=== PATIENT | female | born 1970 | race Caucasian/White ===

== ENCOUNTER 2018-09-09 11:12 | Inpatient (IN) ==
--- NOTE | 2018-09-09 11:33 | PROVIDER DOCUMENTATION ---
HPI-Respiratory General - General Chief Complaint: Cold Symptoms Stated Complaint: COLD SYMPTOMS Time Seen by Provider: 09/09/18 11:22 Source: patient Allergies/Adverse Reactions: Patient Allergies Allergy/AdvReac Type Severity Reaction Status Date / Time No Known Allergies Allergy Verified 09/09/18 11:30 Home Medications: Home Medication List Medication Instructions Recorded Confirmed Last Taken Type Duloxetine HCl [Cymbalta] 30 mg PO DAILY 11/04/15 12/30/15 12/29/15 21:00 History 30 MG Tizanidine HCl [Zanaflex] 2 mg PO DAILY 11/04/15 12/30/15 12/29/15 21:00 History 2 MG Topiramate [Topamax] 50 mg PO DAILY 11/04/15 12/30/15 12/29/15 21:00 History 50 MG Aripiprazole [Abilify] 5 mg PO HS 12/30/15 12/30/15 12/29/15 21:00 History 5 MG Clonazepam [Klonopin] 1 mg PO HS 12/30/15 12/30/15 12/29/15 21:00 History 1 MG Ferrous Gluconate [Ferronate] 325 mg PO BID #60 tablet 12/30/15 Unknown Rx Amlodipine [Norvasc] 10 mg PO DAILY #30 tablet 03/04/18 Unknown Rx Cephalexin [Keflex] 500 mg PO 4XDAY #30 cap 03/04/18 Unknown Rx Furosemide [Lasix] 20 mg PO DAILY #30 tab 03/04/18 Unknown Rx Meloxicam [Mobic] 7.5 mg PO DAILY PRN #15 tab 03/04/18 Unknown Rx Potassium Chloride E.r. [Klor-Con] 10 meq PO DAILY #30 tab 03/04/18 Unknown Rx - History of Present Illness-Resp Nature of Presenting Problem: Patient is a 47yo F who presents w/ c/o productive cough w/white sputum, nasal congestion, and body aches x3 weeks. Also reports occasional SOB. Patient reports she was diagnosed with the Flu 3 weeks ago, and treated, and reports feeling better for 3 days and then symptoms began. Reports she last saw her PCP 4 days ago who gave her a steroid shot and cough medication, which patient reports has not helped. Reports her PCP gave her a breathing treatment in office 4 days ago, which helped. Denies any fever/chills, n/v/d, or CP. Quality of Pain: reports: none Severity in ED: reports: moderate Onset/Duration: reports: other (3 weeks ago) Timing: reports: still present Context: reports: recent URI (Flu) Cough Quality/Degree: reports: mild, productive cough (w/ white sputum) Episode Frequency: occasional episodes Current Respiratory Medication Therapy: Initiated see nurses note, Initiated albuterol Modifying Factors: improves with: albuterol nebulizer, rest. worse with: exertion Associated Symptoms: reports: cough, muscle/bodyaches, nasal congestion, short of breath. denies: chest pain/soreness, dizziness, earache, fever/chills, headache, hurts to breathe, hyperventilating, sweaty Similar Symptoms Previously?: No Recently seen or treated by another doctor?: Yes (Saw PCP4 days ago) Review of Systems - Adult - REVIEW OF SYSTEMS - ADULT Constitutional: denies: chills, fever Eyes: reports: no symptoms reported Ears, Nose, Mouth & Throat: reports: sinus problem. denies: ear pain, throat pain Cardiovascular: denies: chest pain, palpitations Respiratory: reports: see HPI, cough (productive w/ white sputum), shortness of breath. denies: wheezing Gastrointestinal: denies: abdominal pain, nausea, vomiting Genitourinary: reports: no symptoms reported Musculoskeletal: reports: see HPI, muscle aches Integumentary: reports: no symptoms reported Neurological: reports: no symptoms reported Psychiatric: reports: no symptoms reported Endocrine: reports: no symptoms reported All Other Systems: Reviewed and Negative Past History - Adult - PAST MEDICAL HISTORY-ADULT Review of Records: reports: Nursing Assessment Review, Medications Reviewed, Social history reviewed & non-contributory. Major Childhood Illnesses: reports: denies history Cardiovascular: reports: HTN Respiratory: reports: denies history Gastrointestinal: reports: denies history Obstetrical/Gynecological: reports: denies history Genitourinary: reports: denies history Musculoskeletal: reports: denies history Neurological: reports: denies history Psychiatric: reports: depression Endocrine/Immune: reports: anemia Other Conditions: reports: denies history - PRIOR SURGERIES/PROCEDURES Surgical/Procedure History: reports: cholecystectomy, hysterectomy, BTL, C- section, orthopedic (extremity) (right ankle, right elbow), other (breast reduction; emdometrial ablation) - PRIOR HOSPITALIZATIONS Prior Hospitalizations: reports: none - IMMUNIZATION STATUS Childhood Immunizations: See Nurse Assessment Flu Vaccine: See Nurse Assessment - FAMILY HISTORY Family History: reviewed, not pertinent - SOCIAL HISTORY Smoking: non-smoker Physical Exam-General - PHYSICAL EXAM-ADULT Initial Vital Signs Reviewed: Yes - CONSTITUTIONAL General Appearance: alert, mild distress - EYES Eyes: PERRL/EOMI, pink conjunctivae - HEAD, EARS, NOSE, MOUTH & THROAT HENMT: normocephalic/atraumatic, moist mucous membranes, normal ENT inspection, TMs normal, pharynx normal - NECK Neck: full range of motion, supple, normal inspection - RESPIRATORY Respiratory: chest non-tender, no pleuratic chest pain, no respiratory distress, no accessory muscle use, wheezing (mild expiratory wheeze all lung garces). negative: crackles, rales, rhonchi, stridor, retractions, splinting, decreased rate, increased rate - CARDIOVASCULAR Cardiovascular: no gallop, no murmur, tachycardia (107) - GASTROINTESTINAL (ABDOMEN) Abdominal Exam: normal bowel sounds, non tender, soft - LYMPHATIC Lymphatic: no adenopathy - MUSCULOSKELETAL Back Exam: normal inspection Extremity: normal range of motion, non-tender - SKIN Integumentary: normal color, normal turgor, warm/dry - NEUROLOGIC Neurologic: grossly normal - PSYCHIATRIC Psych/Mental Status: normal mood/affect, normal thought content, normal thought process, oriented x 3 Progress - PLAN OF CARE/RESULTS Progress/Plan/Lab Results: Vital Signs - 8 hr 09/09/18 11:16 09/09/18 11:50 09/09/18 12:24 Temperature 99.2 F Pulse Rate 107 H 104 H Respiratory Rate 18 18 Blood Pressure 141/85 O2 Sat by Pulse Oximetry 100 98 99 09/09/18 12:26 09/09/18 12:30 09/09/18 12:40 Temperature Pulse Rate Respiratory Rate Blood Pressure 165/96 O2 Sat by Pulse Oximetry 98 100 96 09/09/18 12:50 09/09/18 13:10 09/09/18 13:20 Temperature Pulse Rate 99 H 102 H Respiratory Rate Blood Pressure O2 Sat by Pulse Oximetry 95 100 100 09/09/18 13:30 09/09/18 13:40 09/09/18 13:50 Temperature Pulse Rate 91 H 95 H 89 Respiratory Rate Blood Pressure O2 Sat by Pulse Oximetry 100 100 99 09/09/18 14:00 09/09/18 14:10 09/09/18 15:51 Temperature Pulse Rate 90 91 H 93 H Respiratory Rate 18 Blood Pressure 157/98 O2 Sat by Pulse Oximetry 100 99 95 Laboratory Results - last 24 hr 09/09/18 09/09/18 15:12 15:12 WBC 8.68 RBC 4.93 Hgb 13.5 Hct 39.7 MCV 80.5 L MCH 27.4 MCHC 34.0 RDW Std Deviation 13.6 Plt Count 193 MPV 10.0 Immature Gran % (Auto) 2.8 H Neut % (Auto) 68.1 Lymph % (Auto) 16.7 L [place] % (Auto) 12.0 H Eos % (Auto) 0.1 Baso % (Auto) 0.3 Immature Gran # (Auto) 0.24 H Neut # (Auto) 5.91 Lymph # (Auto) 1.45 [place] # (Auto) 1.04 H Eos # (Auto) 0.01 Baso # (Auto) 0.03 Sodium 134 L Potassium 3.3 L Chloride 97 L Carbon Dioxide 22 L Anion Gap 15 BUN 12 Creatinine 0.7 Estimated GFR/1.73 m2 > 60 BUN/Creatinine Ratio 17 Glucose 104 Calculated Osmolality 268 Calcium 8.4 L Total Bilirubin 0.50 AST 33 H ALT 29 Alkaline Phosphatase 104 Total Protein 6.7 Albumin 3.5 Globulin 3.2 Albumin/Globulin Ratio 1.1 Orders Category Date Time Status Saline Loc NOW Care 09/09/18 12:02 Active PICC Line Consult Routine Cons 09/09/18 14:06 Active CHEST-2 VIEWS [RAD] Stat Exams 09/09/18 11:20 Completed CBC WITH ELECTRONIC DIFF [HEME] Stat Lab 09/09/18 15:12 Completed COMPREHENSIVE METABOLIC PANEL [CHEM] Stat Lab 09/09/18 15:12 Completed PROTIME WITH INR [COAG] Stat Lab 09/09/18 15:54 Ordered 0.9% Sodium Chloride Inj [Ns] 250 ml Med 09/09/18 14:22 Discontinued .ROUTE As directed Albuterol 2.5MG/Ipratrop 0.5MG [Duoneb (A & A)] Med 09/09/18 11:37 Discontinued 3 ml INH NOW ONE Methylprednisolone Sod Succ [Solu-Medrol] Med 09/09/18 11:38 Discontinued 125 mg IM NOW ONE Potassium Chloride E.r. [Klor-Con] Med 09/09/18 15:58 Once 40 meq PO NOW ONE Vancomycin 1 gm/Ns Med 09/09/18 12:41 Discontinued 1 gm in 250 ml IV NOW Aerosol Treatments Routine Oth 09/09/18 11:38 Completed Aerosol Treatments Stat Oth 09/09/18 11:38 Completed Lab results, imaging results, and plan of care discussed with patient who verbalizes understanding. Plan of care discussed and formulated in conjunction with Dr. Ball. Result Diagrams: 09/09/18 15:12 09/09/18 15:12 - XRAY 1 XRAY: Bilateral XRAY Study: Chest Impression: See EMR Report ([facility] [address], [address], [place] [address] Department of Imaging Patient: JAREN PUENTE Date: 09/09/18MR#: [id number] : 1970ADM Status: PRE ERAcct#: [id number] Age/Sex: 47/FRoom/Bed: Loc: ED Ordering Physician: Ehsan Ball MD Family Physician: John Myles MD Reason for Procedure: cold Signed EXAM: CHEST-2 VIEWS 09/09/2018 HISTORY: cold TECHNIQUE: PA and lateral chest COMMENT: There is fluid in the posterior costophrenic sulcus on the right. Otherwise, there is no evidence of acute cardiac or pulmonary disease. Compared to 03/04/2018 the right pleural fluid collection was not previously present. IMPRESSION: Right pleural effusion. Electronically signed by Ismael Cross 09/09/2018 11:36 AM 09/09/18 1136 Interpreting Physician: Ismael Cross MD Dictated Date/Time: 09/09/18 2234 cc: Ehsan Ball MD; John Myles MD) - CONSULTS/PCP/HOSPITALIST Notification #1 *Consult/PCP/Hospitalist*: BEVERLY Santiago Time Discussed: 15:58 Reason/Comments: Pleural effusion post-influenza; IV antibiotics Consult Disposition: Admit Departure - Departure Date of Disposition Decision: 09/09/18 Time of Disposition Decision: 16:01 DIAGNOSIS: Pleural effusion, right, Post-influenza syndrome Disposition: ADMITTED INPATIENT 09 Certified Medical Emergency: Emergent Condition: Stable Referrals and Follow-Ups: John Myles MD [Primary Care Provider] - - Critical Care Note This patient required my direct & personal management of CC.: No Attestation - Physician/ ADALI Attestation Patient care was provided by Advanced Practice Provider:: Yes Advanced Practice Provider:: Venice Salgado Advanced Practice Provider documentation review:: The Mid-level provider documentation, treatment plan and medical decision making was reviewed by the physician who agrees with all treatment and medical decision making by the MLP. The physician spent face to face time with patient:: No Advanced Practice Provider documentation review:: Supervising physician onsite and consulted in the evaluation and care of this patient. The physician did not have a face to face encounter with the patient.
[2018-09-09] MEDS ORDERED: DUONEB (A & A) INH ONE (11:37)
[2018-09-09] MEDS ORDERED: SOLU-MEDROL IM ONE (11:38)
--- NOTE | 2018-09-09 11:38 | Diag Imaging Result Doc PS360 ---
EXAM: CHEST-2 VIEWS 09/09/2018 HISTORY: cold TECHNIQUE: PA and lateral chest COMMENT: There is fluid in the posterior costophrenic sulcus on the right. Otherwise, there is no evidence of acute cardiac or pulmonary disease. Compared to 03/04/2018 the right pleural fluid collection was not previously present. IMPRESSION: Right pleural effusion. Electronically signed by Ismael Cross 09/09/2018 11:36 AM
[2018-09-09] MEDS ORDERED: VANCOMYCIN 1 GM/NS 1 GM/250 ML IVPB IV ONE (12:41)
[2018-09-09] MEDS ORDERED: NS 250 ML ONE (14:22)
[2018-09-09 15:42] LABS: BASO# 0.03 X1000 (0.0-0.2); BASO% 0.3 % (0.0-0.8); EOS# 0.01 X1000 (0.0-0.7); EOS% 0.1 % (0.0-10.0); HEMATOCRIT 39.7 % (37.0-47.0); HEMOGLOBIN 13.5 g/dL (12.0-16.0); IMM GRAN# 0.24 X1000 (0.0-0.04); IMM GRAN% 2.8 % (0.0-0.5); LYMPH# 1.45 X1000 (1.2-3.4); LYMPH% 16.7 % (20.5-51.1); MCH 27.4 PG (27-31); MCV 80.5 FL (81-99); MONO# 1.04 X1000 (0.11-0.59); NEUT# 5.91 X1000 (1.4-6.5); NEUT% 68.1 % (42.2-75.2); PLT 193 X1000 (130-400); RBC 4.93 XMIL (4.2-5.4); RDW 13.6 % (11.5-14.5); WBC 8.68 X1000 (4.8-10.8)
[2018-09-09 15:57] LABS: AGAP 15; ALB/GLOB RATIO 1.1; ALBUMIN 3.5 g/dL (3.5-5.0); ALKALINE PHOSPHATASE 104 U/L (32-104); BUN 12 mg/dL (8-22); CALCIUM 8.4 mg/dL (8.8-10.2); CHLORIDE 97 mmol/L (98-107); COSMO 268; CREATININE 0.7 mg/dL (0.5-0.9); ESTIMATED GFR > 60; GLUCOSE 104 mg/dL (70-104); GOT 33 U/L (10-30); GPT 29 U/L (10-36); POTASSIUM 3.3 mmol/L (3.5-5.1); SODIUM 134 mmol/L (136-145); TCO2 22 mmol/L (25-35); TOTAL PROTEIN 6.7 g/dL (6.3-8.3)
[2018-09-09] MEDS ORDERED: KLOR-CON PO ONE ×2 (15:58→16:21)
[2018-09-09] MEDS ORDERED: ZOFRAN IV PRN (16:16)
[2018-09-09 16:17] LABS: INR 1.03; PROTIME 14.3 Seconds (11.0-16.0)
[2018-09-09] MEDS ORDERED: TYLENOL PO PRN (16:20)
--- NOTE | 2018-09-09 16:35 | EKG Report ---
Test Performed on : 09/09/2018 12:27:49 PM Test Reason : ED. No order in [place] Blood Pressure : / mmHG Vent. Rate : 098 BPM Atrial Rate : 098 BPM P-R Int : 124 ms QRS Dur : 088 ms QT Int : 350 ms P-R-T Axes : 041 000 049 degrees QTc Int : 446 ms Normal sinus rhythm. Nonspecific ST and T wave abnormality Abnormal ECG When compared with ECG of 04-MAR-2018 14:41, No significant change was found Unconfirmed Result
[2018-09-09] MEDS ORDERED: ZYVOX 600 MG/D5W 600 MG/300 ML IVPB IV SCH (17:00)
[2018-09-09] MEDS: MAXIPIME 1 GM in NS 50 ML IV SCH (17:33)
[2018-09-09] MEDS: TESSALON PO SCH (17:43)
--- NOTE | 2018-09-09 18:15 | Diag Imaging Result Doc PS360 ---
EXAM: CT THORAX W/O CONTRAST HISTORY: pneumonia/pleural effusion TECHNIQUE: CT chest without contrast COMPARISON: 03/04/2018 FINDINGS: No pleural effusions. No cardiomegaly. No thoracic aortic aneurysm. No enlarged lymph nodes. Atelectasis versus tiny infiltrates in the right lung base. No consolidation. No bronchiectasis. There is a left-sided PICC line. Tiny right lower lobe granuloma. Limited images through the upper abdomen reveal a cholecystectomy and prominent fatty infiltration of the liver. IMPRESSION: No consolidation or pleural effusion. Minimal atelectasis versus tiny infiltrate in the right lung base This exam was performed using automated exposure control, adjustment of mA or kV according to patient size, and/or use of iterative reconstruction technique. Electronically signed by Justin Manning 09/09/2018 6:13 PM
[2018-09-09] MEDS: DUONEB (A & A) INH SCH ×2 (20:05→23:32)
--- NOTE | 2018-09-09 20:16 | HISTORY AND PHYSICAL ---
PRIMARY CARE PHYSICIAN: HISTORY OF PRESENT ILLNESS: Ms. Blum is a 47-year-old female with a history of depression and obesity, who presented to the ER today with a chief complaint of 3 weeks of flulike symptoms. The patient reports that 3 weeks ago she was diagnosed with the flu, and ever since then she has been taking quqy-jze-snlmsir cough medication to try to relieve her symptoms. She reports that she has not been having fevers, but she has been complaining of headache, dizziness, increasing shortness of breath, persistent cough with clear sputum, and rhinorrhea. The patient states that she saw her primary care physician on several occasions and has received IM antibiotic therapy as well as oral steroid therapy. She reports a very poor appetite as well as body aches. She denies having any chest pains, seizures or recent syncopal episodes. In the ER, the patient was noted to have a temperature of 99.2 degrees with an O2 saturation of 100% on room air and heart rate of 107. A chest x-ray was done that revealed a right pleural effusion. PAST MEDICAL HISTORY: 1. Obesity. 2. Depression. PAST SURGICAL HISTORY: 1. . 2. Subtotal abdominal hysterectomy. 3. Bilateral salpingo-oophorectomy. 4. Lysis of adhesions. 5. Cholecystectomy. 6. Breast reduction. FAMILY HISTORY: The patient's mother had coronary artery disease at age 62. Positive for brain aneurysm. SOCIAL HISTORY: The patient denies any tobacco, alcohol or illicit drug use. ALLERGIES: No known drug allergies. HOME MEDICATIONS: The patient's medication list is not available at this time. REVIEW OF SYSTEMS: A 12-point review of systems has been performed. Please refer to the history of present illness for pertinent positives and negatives. PHYSICAL EXAMINATION: VITAL SIGNS: Temperature 98.3 degrees, blood pressure 140/87, heart rate 87, respirations 18, O2 saturation 99% on room air. GENERAL: This is a morbidly obese female, lying on the stretcher in no acute distress. SKIN: No rashes, no lesions. Normal capillary refill. HEENT: Head normocephalic, atraumatic. NECK: Supple. No JVD. No lymphadenopathy. HEART: S1, S2 normal. Regular rate and rhythm. LUNGS: Mild diffuse expiratory wheezes. Diminished breath sounds in the right lung base. ABDOMEN: Positive bowel sounds. Soft, nontender, nondistended. EXTREMITIES: No edema or cyanosis. NEUROLOGIC: The patient is alert and oriented x4. No focal neurologic deficits noted. Cranial nerves 2 through 12 intact. LABORATORY DATA: White blood cell count 8.6, hemoglobin 13, hematocrit 39, platelets 193,000. INR 1. Sodium 134, potassium 3.3, chloride 97, CO2 is 22, BUN 12, creatinine 0.7, glucose 104, calcium 8.4, AST 33, ALT 29, alkaline phosphatase 104, albumin 3.5. DIAGNOSTIC DATA: Chest CT revealed minimal atelectasis versus a tiny infiltrate in the right lung base. ASSESSMENT AND PLAN: 1. Possible pneumonia versus atelectasis. Blood and sputum cultures have been ordered. The patient will be started on broad-spectrum antibiotic therapy, bronchodilator therapy and supplemental oxygen. 2. Hypokalemia. We will replace the patient's potassium. 3. Morbid obesity. Aware. 4. Situational depression. Continue on BuSpar and Cymbalta. 5. Gastrointestinal prophylaxis. Continue on omeprazole. 6. Deep vein thrombosis prophylaxis. We will start the patient on Lovenox. cc: Lakshmi Ramsey MD [facility]
[2018-09-09] MEDS: NS 1,000 ML IV SCH (21:08)
[2018-09-09] MEDS: ZITHROMAX 500 MG/NS 500 MG/250 ML IVPB IV SCH (21:09)
[2018-09-09] MEDS: CYMBALTA PO SCH (22:25)
[2018-09-09] MEDS: BUSPAR PO SCH (22:25)
[2018-09-09] MEDS: SEROQUEL PO SCH (22:25)
[2018-09-09] MEDS: TUSSIONEX LIQUID PO SCH (22:25)
[2018-09-10] MEDS: DUONEB (A & A) INH SCH ×6 (03:34→23:57)
[2018-09-10] MEDS: MAXIPIME 1 GM in NS 50 ML IV SCH ×2 (06:31→17:34)
[2018-09-10] MEDS: PRILOSEC PO SCH (06:31)
[2018-09-10 07:13] LABS: HEMATOCRIT 40.2 % (37.0-47.0); HEMOGLOBIN 13.4 g/dL (12.0-16.0); MCH 27.6 PG (27-31); MCHC 33.3 g/dL (33-37); MCV 82.9 FL (81-99); MPV 9.9 FL (7.4-10.4); RBC 4.85 XMIL (4.2-5.4); WBC 7.51 X1000 (4.8-10.8)
[2018-09-10 07:45] LABS: AGAP 12; ALB/GLOB RATIO 1.1; ALBUMIN 3.5 g/dL (3.5-5.0); ALKALINE PHOSPHATASE 102 U/L (32-104); BUN 11 mg/dL (8-22); CALCIUM 7.9 mg/dL (8.8-10.2); CHLORIDE 104 mmol/L (98-107); COSMO 280; CREATININE 0.6 mg/dL (0.5-0.9); ESTIMATED GFR > 60; GLUCOSE 190 mg/dL (70-104); GOT 22 U/L (10-30); GPT 32 U/L (10-36); MAGNESIUM 2.2 mg/dL (1.5-2.7); POTASSIUM 3.9 mmol/L (3.5-5.1); SODIUM 138 mmol/L (136-145); TCO2 22 mmol/L (25-35); TOTAL BILIRUBIN 0.29 mg/dL (0.20-1.00); TOTAL PROTEIN 6.7 g/dL (6.3-8.3)
[2018-09-10] MEDS ORDERED: CYMBALTA PO SCH (09:00)
[2018-09-10] MEDS ORDERED: NASONEX NASAL SPRAY NAS SCH (09:00)
[2018-09-10] MEDS ORDERED: SOLU-MEDROL IV SCH ×2 (09:00→21:00)
[2018-09-10] MEDS: TUSSIONEX LIQUID PO SCH ×2 (10:05→20:17)
[2018-09-10] MEDS: BUSPAR PO SCH ×2 (10:05→20:17)
[2018-09-10] MEDS: LOVENOX SUBQ SCH (10:05)
[2018-09-10] MEDS: TESSALON PO SCH ×3 (10:05→17:34)
--- NOTE | 2018-09-10 11:25 | PROGRESS NOTE ---
DATE: 09/10/2018 SUBJECTIVE: The patient states that she feels a lot better today. She states that her wheezing has improved, and she is not coughing as much. OBJECTIVE: Vital Signs: Temperature 97.5 degrees, blood pressure 144/87, heart rate 83, respirations 18, O2 saturation 96% on room air. General: This is an overweight female, lying in bed in no acute distress. Heart: S1, S2 normal. Regular rate and rhythm. Lungs: Equal air entry bilaterally. No crackles. No wheezing. No rales. Abdomen: Positive bowel sounds. Soft, nontender, nondistended. Extremities: No edema, no cyanosis. Neurologic: The patient is alert and oriented x4. LABS: Reviewed. ASSESSMENT AND PLAN: 1. Pneumonia. Continue with antibiotic therapy. 2. Situational depression. Continue on BuSpar and Cymbalta. 3. Morbid obesity. Aware. 4. Gastrointestinal prophylaxis. Continue on omeprazole. 5. Deep vein thrombosis prophylaxis. Continue on Lovenox. cc: Lakshmi Ramsey MD
[2018-09-10] MEDS: NS 1,000 ML IV SCH (13:53)
--- NOTE | 2018-09-10 14:44 | ECHO REPORT ---
ORDER DATE: 09/09/2018 INTERPRETING PHYSICIAN: Dr. Uriah Rivera. ECHOCARDIOGRAPHIC MEASUREMENTS: 1. Interventricular septum 0.9. 2. Left ventricular posterior wall 0.8. 3. Diastolic diameter 5.3. 4. Left atrium 3.5. 5. Aorta 3.5. SUMMARY OF THE 2-DIMENSIONAL IMAGIN. Aortic valve appears to be trileaflet. 2. Pulmonic valve not well visualized. 3. Mitral valve was normal. 4. Tricuspid valve was normal. Peak velocity across the tricuspid valve was 2 m/sec. 5. Peak velocity across the aortic valve was less than 2 m/sec. There is no aortic stenosis or regurgitation. 6. There is mild mitral regurgitation. 7. Mild tricuspid regurgitation. 8. Normal left ventricular cavity size. 9. Estimated ejection fraction of 60% to 65%. 10. There is no pericardial effusion or obvious intracardiac mass or thrombus seen. cc: MD Lakshmi Hernández MD
[2018-09-10] MEDS: CYMBALTA PO SCH (20:17)
[2018-09-10] MEDS: SEROQUEL PO SCH (20:18)
[2018-09-10] MEDS: ZITHROMAX 500 MG/NS 500 MG/250 ML IVPB IV SCH (20:19)
[2018-09-11] MEDS: DUONEB (A & A) INH SCH ×6 (03:48→23:36)
[2018-09-11] MEDS: NS 1,000 ML IV SCH (04:12)
[2018-09-11] MEDS: MAXIPIME 1 GM in NS 50 ML IV SCH ×2 (04:12→17:33)
[2018-09-11] MEDS: PRILOSEC PO SCH (06:43)
[2018-09-11 07:17] LABS: HEMATOCRIT 37.7 % (37.0-47.0); HEMOGLOBIN 12.5 g/dL (12.0-16.0); MCH 27.8 PG (27-31); MCHC 33.2 g/dL (33-37); MCV 83.8 FL (81-99); RBC 4.5 XMIL (4.2-5.4); RDW 14.1 % (11.5-14.5); WBC 12.34 X1000 (4.8-10.8)
[2018-09-11 07:51] LABS: AGAP 9; BUN 10 mg/dL (8-22); CALCIUM 8.4 mg/dL (8.8-10.2); CHLORIDE 110 mmol/L (98-107); COSMO 287; CREATININE 0.5 mg/dL (0.5-0.9); ESTIMATED GFR > 60; GLUCOSE 147 mg/dL (70-104); POTASSIUM 4.2 mmol/L (3.5-5.1); SODIUM 143 mmol/L (136-145); TCO2 24 mmol/L (25-35)
[2018-09-11] MEDS: BUSPAR PO SCH ×2 (08:41→22:49)
[2018-09-11] MEDS: TUSSIONEX LIQUID PO SCH ×2 (08:41→22:50)
[2018-09-11] MEDS: LOVENOX SUBQ SCH (08:42)
[2018-09-11] MEDS: FLONASE NAS SCH (08:42)
[2018-09-11] MEDS: TESSALON PO SCH ×3 (08:42→17:33)
[2018-09-11] MEDS: CULTURELLE PO SCH ×2 (12:27→22:49)
[2018-09-11 13:10] LABS: HEMOGLOBIN A1C 5.9 % (4.8-6.0)
--- NOTE | 2018-09-11 13:10 | PROGRESS NOTE ---
DATE: 09/11/2018 SUBJECTIVE: The patient is resting comfortably in bed. She states that she feels a lot better today. She is coughing a lot less. OBJECTIVE: Vital Signs: Temperature 97.8 degrees, blood pressure 143/78, heart rate 87, respirations 18, O2 saturation 98% on room air. General: This is a middle-aged female, sitting in bed in no acute distress. Heart: S1, S2 normal. Regular rate and rhythm. Lungs: Clear to auscultation bilaterally. Abdomen: Positive bowel sounds. Soft, nontender, nondistended. Extremities: No edema. No cyanosis. Neurologic: The patient is alert and oriented x3. LABORATORY DATA: Reviewed. ASSESSMENT AND PLAN: 1. Pneumonia, improved. Continue with antibiotic and bronchodilator therapy. Will order a chest x-ray to be done tomorrow. 2. Morbid obesity. Aware. 3. Situational depression. Continue on buspirone, Cymbalta. 4. Gastrointestinal prophylaxis. Continue on omeprazole. 5. Deep vein thrombosis prophylaxis. Continue on Lovenox. cc: Lakshmi Ramsey MD
[2018-09-11] MEDS: SEROQUEL PO SCH (22:49)
[2018-09-11] MEDS: CYMBALTA PO SCH (22:49)
[2018-09-11] MEDS: ZITHROMAX 500 MG/NS 500 MG/250 ML IVPB IV SCH (22:49)
[2018-09-12] MEDS: DUONEB (A & A) INH SCH ×3 (03:44→11:19)
[2018-09-12] MEDS: PRILOSEC PO SCH (06:44)
[2018-09-12] MEDS: MAXIPIME 1 GM in NS 50 ML IV SCH (06:44)
[2018-09-12 06:49] LABS: HEMATOCRIT 39.6 % (37.0-47.0); HEMOGLOBIN 13.1 g/dL (12.0-16.0); MCH 27.8 PG (27-31); MCHC 33.1 g/dL (33-37); MCV 84.1 FL (81-99); MPV 9.8 FL (7.4-10.4); RBC 4.71 XMIL (4.2-5.4); RDW 14.2 % (11.5-14.5); WBC 9.86 X1000 (4.8-10.8)
[2018-09-12 07:12] LABS: AGAP 13; BUN 9 mg/dL (8-22); CALCIUM 7.9 mg/dL (8.8-10.2); CHLORIDE 104 mmol/L (98-107); COSMO 285; CREATININE 0.6 mg/dL (0.5-0.9); ESTIMATED GFR > 60; GLUCOSE 87 mg/dL (70-104); POTASSIUM 3.5 mmol/L (3.5-5.1); SODIUM 144 mmol/L (136-145); TCO2 27 mmol/L (25-35)
--- NOTE | 2018-09-12 07:27 | Diag Imaging Result Doc PS360 ---
EXAM: CHEST-PORTABLE INDICATION: pneumonia TECHNIQUE: One view COMPARISON: 09/09/2018 FINDINGS: There has been interval placement of a left PICC line. The tip projecting over the lower SVC just superior to the atriocaval junction in the expected position. The left costophrenic angle appears mildly blunted suggesting a possible trace effusion. The small right effusion seen on the previous PA and lateral radiograph on the lateral view only cannot be identified on this AP view. No new consolidation is identified. Cardiac silhouette is stable. IMPRESSION: Suggestion of a trace left effusion and interval placement of the PICC line as described. Electronically signed by Elijah Barragan 09/12/2018 7:25 AM
[2018-09-12] MEDS: CULTURELLE PO SCH (09:41)
[2018-09-12] MEDS: TESSALON PO SCH (09:41)
[2018-09-12] MEDS: FLONASE NAS SCH (09:42)
[2018-09-12] MEDS: LOVENOX SUBQ SCH (09:42)
[2018-09-12] MEDS: BUSPAR PO SCH (09:42)
[2018-09-12] MEDS: TUSSIONEX LIQUID PO SCH (09:51)
[2018-09-12 11:48] VITALS: BP 149/93
--- NOTE | 2018-09-12 20:30 | DISCHARGE SUMMARY ---
ADMISSION DATE: 09/09/2018 DISCHARGE DATE: 09/12/2018 FINAL DISCHARGE DIAGNOSES: 1. Pneumonia. 2. Depression. 3. Morbid obesity. IMAGIN. Portable chest x-ray performed on 09/09/2018 that revealed a right pleural effusion. 2. Echocardiogram performed on 09/09/2018 that revealed an ejection fraction of [address] of the chest performed on 09/09/2018 that revealed a tiny infiltrate in the right lung base. Minimal atelectasis. HOSPITAL COURSE: Ms Blum is a 47-year-old female with a history of obesity and depression who presented to the ER with generalized weakness, productive cough with shortness of breath who states that she had been feeling sick for about 3 weeks. She was diagnosed with the flu 3 weeks ago but never really got over the symptomatology. On admission a chest x-ray was done which revealed a right pleural effusion which is followed by chest CT that revealed a tiny infiltrate in the right lung base. The patient was admitted to the hospitalist service and blood cultures and sputum culture were ordered. Patient's influenza screen was noted to be negative. Patient was started on broad-spectrum antibiotics, bronchodilator therapy, IV steroids and will cough suppressant. Over the course of the hospitalization the patient's symptoms improved. The patient stated that on the day of discharge she was back to her baseline and felt stronger. A chest x-ray was done on the day of discharge that revealed a trace left effusion. DISCHARGE MEDICATIONS: 1. Lactobacillus 1 tab oral twice a day. 2. Flonase 50 mcg intranasal daily. 3. Tessalon 100 mg oral 3 times a day. 4. Ventolin 2 puffs inhaled every 6 hours as needed. 5. Tussionex 5 mg oral every 12 hours p.r.n. 6. Augmentin 875/125 one tab oral twice a day for 5 days. 7. Cymbalta 60 mg p.o. daily. 8. Seroquel 50 mg p.o. at bedtime. 9. Buspirone 10 mg oral twice a day. DISCHARGE DIET: Regular diet. ACTIVITY: As tolerated. FOLLOWUP INSTRUCTIONS: The patient has been advised to follow up with Dr. Myles in 1 week for repeat chest x-ray. cc: John Myles MD
== END 2018-09-12 13:20 | disposition home or self-care (01) | DRG 194 ==
LOC: ED 11:12 → 3N 18:07
PROVIDERS: ATTEND Internal Medicine
CPT/HCPCS: 36569; 71010; 71020; 71045; 71046; 71250; 80048; 80053; 83036; 83735; 84145; 85025; 85027; 85610; 85651; 86140; 87040; 87275; 87276; 87804; 93005; 93306; 94640; 94760; 94761; 96365; 96367; 96375; 99285; A9270; J0456; J0692; J1650; J2020; J2920; J2930; J3370; J7030; J7050